=== PATIENT | male | born 1960 | race Caucasian/White ===

== ENCOUNTER 2019-05-11 17:55 | Emergency (ER) | payer OTHER, SELFPAY ==
[2019-05-11] VITALS (10 sets, daily range): BP systolic 96–120; BP diastolic 67–88; PULSE 60–82; RESP 13–20; TEMP 36.6; O2SAT 98–100; BMI 27.8
--- NOTE | 2019-05-11 18:19 | DI.RAD.S_ITS ---
PROCEDURE: XR CHEST 1V INDICATIONS: chest pain TECHNIQUE: One view of the chest was acquired. COMPARISON: [facility], , CHEST 2 VIEW, 09/03/2014, 14:11. FINDINGS: Surgical changes and devices: None. Lungs and pleura: Lungs are clear. No pleural effusions or pneumothorax. Mediastinum: Mediastinal contours appear normal. Heart size is normal. Bones and chest wall: No suspicious bony lesions. Overlying soft tissues appear unremarkable. IMPRESSION: No acute cardiopulmonary pathology. Dictated by: Osito Barbour M.D. on 05/11/2019 at 18:40 Approved by: Osito Barbour M.D. on 05/11/2019 at 18:40
--- NOTE | 2019-05-11 18:30 | ED_ITS ---
HPI - Dizziness General Chief Complaint: Dizziness Stated Complaint: weakness, headache, stomach pain Time Seen by Provider: 05/11/19 17:59 Source: patient Mode of arrival: ambulatory Limitations: no limitations History of Present Illness HPI Narrative: Patient is a 58-year-old male with history of diabetes presenting with overall body aches and lightheadedness. He says it is sore to start yesterday but progressively gotten worse today. Today he bent over stood up and felt extremely dizzy and lightheaded he did not pass out. He denies any heart palpitations or focal deficits. He says that his metformin was recently doubled last week he was previously taking 500 twice a day now is taking 1000 twice a day he thinks it might be related. Initially he thought his sugar was low he does not have a glucometer at home to check it so he drink pop it did not seem to help. He has significant decrease in appetite. He feels some abdominal cramping but no real specific pain. He had 1 episode of diarrhea today no nausea or vomiting. He does have some lower leg cramps as well. MD complaint: dizziness and lightheadedness Related Data Home Medications Medication Instructions Recorded Confirmed metformin [Glucophage] 500 mg PO BIDCC #0 03/28/17 04/01/19 magnesium oxide 400 mg PO Q DAY #0 05/14/17 04/01/19 Previous Rx's Medication Instructions Recorded hydrochlorothiazide 25 mg PO QDAY #90 tab 03/28/17 carvedilol [Coreg] 3.125 mg PO Q DAY #90 tab 12/16/17 Allergies Allergy/AdvReac Type Severity Reaction Status Date / Time tramadol Allergy Mild N/V Verified 05/11/19 18:08 Review of Systems Review of Systems ROS Unobtainable: All systems reviewed & are unremarkable except as noted in HPI and below Constitutional Reports body ache(s), Denies chills, Denies fever(s), Denies lethargy and Denies weakness Eyes Denies change in vision, Denies eye discharge, Denies irritation and Denies loss of vision ENT Ears, Nose, Mouth, and Throat: Denies change in voice, Denies neck pain and Denies sore throat Cardiovascular Denies chest pain, Denies syncope, Denies irregular heart rhythm, Reports lightheadedness, Denies palpitations, Denies dyspnea and Denies dyspnea on exertion Respiratory Denies cough, Denies dyspnea, Denies dyspnea on exertion and Denies wheezing Gastrointestinal Gastrointestinal: Denies abdominal pain, Denies change in bowel habits, Denies diarrhea, Denies nausea and Denies vomiting Genitourinary Denies hematuria, Denies flank pain, Denies urinary incontinence and Denies urinary urgency Musculoskeletal Denies neck pain Integumentary/Breasts Denies pruritus, Denies erythema, Denies rash and Denies wounds Neurologic Denies syncope, Denies loss of vision and Denies weakness Endocrine Denies palpitations Allergic/Immunologic Denies wheezing [facility] Medical History Diabetes (Acute) Surgical History History of tonsillectomy Status post appendectomy Family History (Updated 02/06/17 @ 00:00 by Conversion Provider) Mother Heart disease Hypertension Stroke Social History Smoking Status: Never smoker Family History Mother Heart disease Hypertension Stroke Social History Smoking Status: Never smoker Exam Initial Vital Signs Initial Vital Signs: Vital Signs Temperature 97.9 F 05/11/19 18:08 Pulse Rate 69 05/11/19 18:08 Respiratory Rate 20 05/11/19 18:08 Blood Pressure 119/74 05/11/19 18:08 Pulse Oximetry 100 05/11/19 18:08 GENERAL: Well-appearing, well-nourished and in no acute distress. HEENT: Head atraumatic,EOMI, pupils reactive, face symmetric, moist mucous membranes CARDIOVASCULAR: Regular rate and rhythm without murmurs, rubs or gallops. RESPIRATORY: Breath sounds equal bilaterally, no wheezes rales or rhonchi. ABDOMEN: Soft, nontender. Normoactive bowel sounds all 4 quadrants. No guarding or rebound. EXTREMITIES: Normal range of motion, no clubbing or edema. Neurovascularly intact NEUROLOGICAL: Alert and oriented x4.Normal gait and speech. Cranial nerves II through XII grossly intact. Content Checker strength equal bilaterally lower extremity strength equal. SKIN: Warm, dry, no laceration, no petechiae, no rashes or lesions. Course Orders Ordered: ED Orders 05/11/19 18:10 EKG-12 Lead Stat 05/11/19 18:19 XR chest 1V Stat 05/11/19 18:20 Complete Blood Count AUTO DIFF Stat Comprehensive Metabolic Panel Stat Lipase Stat Partial Thromboplastin Time Stat Prothrombin Time INR Stat Troponin & CK Cardiac Panel Stat 05/11/19 18:28 US abdomen limited Stat 05/11/19 21:12 CT head/brain wo con Stat 05/11/19 21:21 Basic Metabolic Panel Stat Lactate (Lactic Acid) Stat Discontinued Medications Carvedilol (Coreg) 6.25 mg PO NOW ONE Stop: 05/11/19 21:11 Last Admin: 05/11/19 21:14 Dose: Not Given Sodium Chloride (Normal Saline 0.9%) 1,000 mls @ 1,000 mls/hr IV BOLUS ONE Stop: 05/11/19 19:27 Last Infusion: 05/11/19 19:23 Dose: 0 mls/hr Admin: 05/11/19 18:35 Dose: 1,000 mls/hr Sodium Chloride (Normal Saline 0.9%) 1,000 mls @ 1,000 mls/hr IV BOLUS ONE Stop: 05/11/19 20:05 Last Infusion: 05/11/19 20:26 Dose: 0 mls/hr Admin: 05/11/19 19:40 Dose: 1,000 mls/hr Sodium Chloride (Normal Saline 0.9%) 1,000 mls @ 1,000 mls/hr IV BOLUS ONE Stop: 05/11/19 21:44 Last Infusion: 05/11/19 22:22 Dose: 0 mls/hr Infusion: 05/11/19 21:37 Dose: 1,000 mls/hr Infusion: 05/11/19 21:25 Dose: 0 mls/hr Admin: 05/11/19 20:55 Dose: 1,000 mls/hr Lisinopril (Zestril) 40 mg PO NOW ONE Stop: 05/11/19 21:11 Last Admin: 05/11/19 21:15 Dose: Not Given Lorazepam (Ativan) 2 mg PO NOW ONE Stop: 05/11/19 21:11 Last Admin: 05/11/19 21:15 Dose: Not Given Vital Signs - 8 hr 05/11/19 18:08 05/11/19 19:00 05/11/19 19:31 Temperature 97.9 F Pulse Rate 69 69 67 Pulse Rate [Orthostatic Lying] Pulse Rate [Orthostatic Sitting] Pulse Rate [Orthostatic Standing] Respiratory Rate 20 15 14 Blood Pressure 119/74 Blood Pressure [Left Arm] 103/67 115/78 Blood Pressure [Orthostatic Lying] Blood Pressure [Orthostatic Sitting] Blood Pressure [Orthostatic Standing] Pulse Oximetry 100 98 100 05/11/19 20:00 05/11/19 20:41 05/11/19 20:52 Temperature Pulse Rate 65 82 61 Pulse Rate [Orthostatic Lying] Pulse Rate [Orthostatic Sitting] Pulse Rate [Orthostatic Standing] Respiratory Rate 16 16 Blood Pressure Blood Pressure [Left Arm] 108/80 113/83 Blood Pressure [Orthostatic Lying] Blood Pressure [Orthostatic Sitting] Blood Pressure [Orthostatic Standing] Pulse Oximetry 100 100 100 05/11/19 20:54 05/11/19 21:00 05/11/19 22:00 Temperature Pulse Rate 68 62 Pulse Rate [Orthostatic Lying] 60 Pulse Rate [Orthostatic Sitting] 65 Pulse Rate [Orthostatic Standing] 70 Respiratory Rate 20 16 Blood Pressure Blood Pressure [Left Arm] 112/88 119/81 Blood Pressure [Orthostatic Lying] 113/83 Blood Pressure [Orthostatic Sitting] 118/84 Blood Pressure [Orthostatic Standing] 96/69 Pulse Oximetry 100 100 05/11/19 22:30 Temperature Pulse Rate 61 Pulse Rate [Orthostatic Lying] Pulse Rate [Orthostatic Sitting] Pulse Rate [Orthostatic Standing] Respiratory Rate 13 Blood Pressure Blood Pressure [Left Arm] 120/81 Blood Pressure [Orthostatic Lying] Blood Pressure [Orthostatic Sitting] Blood Pressure [Orthostatic Standing] Pulse Oximetry 98 MDM - Dizziness Lab Data Attestation: I reviewed the patient's lab results. Result diagrams: 05/11/19 18:20 05/11/19 21:21 Lab Results 05/11/19 05/11/19 05/11/19 Range/Units 18:20 18:20 18:20 WBC 6.4 (4.5-11.0) X10^3/uL RBC 4.15 L (4.5-5.9) X10^6/uL Hgb 13.9 (13.5-17.5) g/dL Hct 40.1 L (41-53) % MCV 96.6 (80-100) fL MCH 33.4 (26-34) PG MCHC 34.6 (30-36) % RDW 13.5 (11.6-14.8) % Plt Count 161 (150-400) X10^3/uL Neut % (Auto) 46.3 L (50-75) % Lymph % (Auto) 42.7 H (25-40) % Wheeler % (Auto) 9.3 (3-14) % Eos % (Auto) 1.1 L (2-4) % Baso % (Auto) 0.6 (0-2) % Neut # (Auto) 3000 (7440-1894) /uL Lymph # (Auto) 2700 (6889-9302) /uL Wheeler # (Auto) 600 (0-900) /uL Eos # (Auto) 100 (0-450) /uL Baso # (Auto) 0 (0-100) /uL PT 11.5 (10.1-12.7) SECONDS INR 1.0 (0.9-1.3) APTT 32 (26.4-36.2) SECONDS Sodium 131 L (137-145) mmol/L Potassium 4.5 (3.4-5.1) mmol/L Chloride 99 (98-107) mmol/L Carbon Dioxide 20 L (22-32) mmol/L BUN 55 H (9-20) mg/dL Creatinine 2.00 H (0.66-1.25) mg/dL Estimated GFR 34.3 L (>60) mL/min BUN/Creatinine Ratio 27.5 H (6-22) Glucose 182 H (80-110) mg/dL Lactate (0.7-2.1) mmol/L Calcium 9.6 (8.4-10.2) mg/dL Total Bilirubin 0.5 (0.2-1.3) mg/dL AST 65 H (17-59) IU/L ALT 119 H (21-72) IU/L Alkaline Phosphatase 53 (38-126) U/L Total Creatine Kinase 184 H (55-170) U/L CK-MB (CK-2) 2.27 (<2.37) ng/mL CK-MB (CK-2) Rel Index 1.2 L (1.5-5.0) % Troponin I < 0.012 (0.01-0.034) ng/mL Total Protein 7.2 (6.3-8.2) g/dL Albumin 4.2 (3.5-5.0) g/dL Globulin 3.0 (1.7-4.1) g/dL Albumin/Globulin Ratio 1.4 (1.0-2.8) Lipase 249 (23-300) U/L 05/11/19 05/11/19 Range/Units 21:21 21:21 WBC (4.5-11.0) X10^3/uL RBC (4.5-5.9) X10^6/uL Hgb (13.5-17.5) g/dL Hct (41-53) % MCV (80-100) fL MCH (26-34) PG MCHC (30-36) % RDW (11.6-14.8) % Plt Count (150-400) X10^3/uL Neut % (Auto) (50-75) % Lymph % (Auto) (25-40) % Wheeler % (Auto) (3-14) % Eos % (Auto) (2-4) % Baso % (Auto) (0-2) % Neut # (Auto) (3608-5657) /uL Lymph # (Auto) (9131-4023) /uL Wheeler # (Auto) (0-900) /uL Eos # (Auto) (0-450) /uL Baso # (Auto) (0-100) /uL PT (10.1-12.7) SECONDS INR (0.9-1.3) APTT (26.4-36.2) SECONDS Sodium 137 (137-145) mmol/L Potassium 4.2 (3.4-5.1) mmol/L Chloride 106 (98-107) mmol/L Carbon Dioxide 22 (22-32) mmol/L BUN 50 H (9-20) mg/dL Creatinine 1.70 H (0.66-1.25) mg/dL Estimated GFR 41.3 L (>60) mL/min BUN/Creatinine Ratio 29.4 H (6-22) Glucose 80 D (80-110) mg/dL Lactate 0.6 L (0.7-2.1) mmol/L Calcium 8.6 (8.4-10.2) mg/dL Total Bilirubin (0.2-1.3) mg/dL AST (17-59) IU/L ALT (21-72) IU/L Alkaline Phosphatase (38-126) U/L Total Creatine Kinase (55-170) U/L CK-MB (CK-2) (<2.37) ng/mL CK-MB (CK-2) Rel Index (1.5-5.0) % Troponin I (0.01-0.034) ng/mL Total Protein (6.3-8.2) g/dL Albumin (3.5-5.0) g/dL Globulin (1.7-4.1) g/dL Albumin/Globulin Ratio (1.0-2.8) Lipase (23-300) U/L Imaging Data Chest x-ray: Radiologist's impression: PROCEDURE: XR CHEST 1V INDICATIONS: chest pain TECHNIQUE: One view of the chest was acquired. COMPARISON: [facility], CHEST 2 VIEW, 09/03/2014, 14:11. FINDINGS: Surgical changes and devices: None. Lungs and pleura: Lungs are clear. No pleural effusions or pneumothorax. Mediastinum: Mediastinal contours appear normal. Heart size is normal. Bones and chest wall: No suspicious bony lesions. Overlying soft tissues appear unremarkable. IMPRESSION: No acute cardiopulmonary pathology. Dictated by: Osito Barbour M.D. on 05/11/2019 at 18:40 US - abdomen: Radiologist's impression: PROCEDURE: US ABDOMEN LIMITED INDICATIONS: RIGHT UPPER QUADRANT PAIN TECHNIQUE: Real-time scanning was performed of the abdominal and retroperitoneal organs, with image documentation. COMPARISON: None. FINDINGS: Liver: Liver is normal in size. Increased liver parenchyma echotexture is seen suggestive of hepatic steatosis. No discrete hepatic lesion is noted. Gallbladder: There is no gallstone. Sludge material is noted in the dependent portion of gallbladder lumen. No gallbladder wall thickening or pericholecystic fluid. No sonographic Gagnon's sign. Biliary ducts: Intrahepatic bile ducts are non-dilated. Extrahepatic bile duct caliber measures 3.5 mm. Normal is 6-7 mm or less in diameter, or 10 mm or less post-cholecystectomy. Pancreas: Visualized portions of the pancreas are sonographically normal. Miscellaneous: No free abdominal fluid. IMPRESSION: 1. Hepatic steatosis. No discrete hepatic lesion. 2. Sludge material within gallbladder lumen. No evidence of acute cholecystitis. 3. No biliary ductal dilatation. Dictated by: Osito Barbour M.D. on 05/11/2019 at 20:05 Approved by: Osito Barbour M.D. on 05/11/2019 at 20:07 CT scan - head: Radiologist's impression: PROCEDURE: CT HEAD/BRAIN WO CON INDICATIONS: headache lightheaded TECHNIQUE: Noncontrast 4.5 mm thick angled axial sections acquired from the foramen magnum to the vertex, with coronal and sagittal reformats. For radiation dose reduction, the following was used: automated exposure control, adjustment of mA and/or kV according to patient size. COMPARISON: None. FINDINGS: Image quality: Excellent. CSF spaces: Basal cisterns are patent. No extra-axial fluid collections. Ventricles are normal in size and shape. Brain: No midline shift. No intracranial masses or hemorrhage. Miramontes-white matter interface is normal. Skull and face: Calvarium and visualized facial bones are intact, without suspicious lesions. Sinuses: Visualized sinuses and mastoids are clear. IMPRESSION: No CT evidence of acute intracranial pathology. Dictated by: Osito Barbour M.D. on 05/11/2019 at 22:04 ECG Data Attestation: I personally reviewed and interpreted this ECG as follows: Prior ECG tracings: available for review Interpretation: Normal sinus rhythm rate 67 P are interval [address] changes no T-wave inversions similar to previous EKGs. [facility] Narrative Medical decision making narrative: 9:15 p.m.. Patient has had 2 L of IV fluid he feels a little bit better. Ambulation trial at the end he felt extremely lightheaded again. He also now is complaining that he has had headache off and on throughout the day he typically does not get headaches. Decision for head CT. Repeat blood work including lactic acid to rule out any complication from metformin. Patient is tolerating oral fluids he has had 2 L of IV fluids, now on his 3rd. He actually is on hydrochlorothiazide which may have contributed to some dehydration. Also body possibly reacting to metformin although it is bullock cars the dehydration. It is also unclear what his baseline creatinine is. His previously in 2017 0.9. Creatinine did improved today after IV fluids from 2.0- 1.7. After the 3rd L is he overall is feeling better. [facility] He feels comfortable going home all overall feeling less dizzy. Patient did have outpatient blood work done on 04/27/2019 however BUN creatinine and electrolytes were not done. At this time I discussed with patient and to return to his metformin previous dose of 500 twice a day and to stop his hydrochlorothiazide until further notice. I discussed all findings with the patient and spouse, Education has been performed regarding treatment plan, diagnosis, warning signs and symptoms and all concerns have been addressed. Verbally agree with and understood all of the above. Discharge Plan Departure Patient Disposition: Home Clinical Impression: Acute dehydration Discharge Date/Time: 05/11/19 22:44 Interventions: ED Discharge Assessment Last Done: 05/11/19 22:44 Instructions: Orthostatic Hypotension Activity Restrictions/Additional Instructions: *You have been diagnosed with dehydration *What to do: Your kidney function today was elevated. This may be due to hydrochlorothiazide and or increase in Metformin BUN today 50, creatinine 2.0 *Continue to take medications as directed Decrease metformin back to 500 mg twice daily Hold off hydrochlorothiazide for now until further instructions from her PCP *Follow up with your primary care provider in 2-3 days *Return to ER if you should have persistent dizziness lightheadedness, unilateral weakness, passing out, chest pain or any new, worsening or concerning symptoms Prescriptions: No Action metformin [Glucophage] 500 MG tablet 500 mg PO BIDCC Qty: 0 RF: 0 hydrochlorothiazide 25 MG tablet 25 mg PO QDAY Qty: 90 RF: 3 magnesium oxide 400 MG capsule 400 mg PO Q DAY Qty: 0 RF: 0 carvedilol [Coreg] 3.125 MG tablet 3.125 mg PO Q DAY Qty: 90 RF: 3 Referrals: Elan Gao ARNP [Primary Care Provider] -
[2019-05-11 18:33] LABS: Add Manual Diff / Slide Review NO; Basophils Absolute Auto 0 /uL (0-100); Basophils Percent Auto 0.6 % (0-2); Eosinophils Absolute Auto 100 /uL (0-450); Eosinophils Percent Auto 1.1 % (2-4); Hematocrit 40.1 % (41-53); Hemoglobin 13.9 g/dL (13.5-17.5); Lymphocytes Absolute Auto 2700 /uL (1100-4500); Lymphocytes Percent Auto 42.7 % (25-40); Mean Corpuscular HGB Conc 34.6 % (30-36); Mean Corpuscular Hemoglobin 33.4 PG (26-34); Mean Corpuscular Volume 96.6 fL (80-100); Monocytes Absolute Auto 600 /uL (0-900); Monocytes Percent Auto 9.3 % (3-14); Neutrophils Absolute Auto 3000 /uL (1500-7000); Neutrophils Percent Auto 46.3 % (50-75); Platelet Count 161 X10^3/uL (150-400); Red Blood Cell Count 4.15 X10^6/uL (4.5-5.9); Red Cell Distribution Width 13.5 % (11.6-14.8); White Blood Cell Count 6.4 X10^3/uL (4.5-11.0)
[2019-05-11] MEDS: SODIUM CHLORIDE 0.9% 1,000 ML 1000 ML IV ×3 (18:35→20:55)
[2019-05-11 18:38] LABS: Prothrombin Time 11.5 SECONDS (10.1-12.7)
[2019-05-11 18:40] LABS: PTT Partial Thromboplastin Tim 32 SECONDS (26.4-36.2)
[2019-05-11 18:42] LABS: Alanine Aminotransferase 119 IU/L (21-72); Albumin 4.2 g/dL (3.5-5.0); Albumin Globulin Ratio 1.4 (1.0-2.8); Alkaline Phosphatase 53 U/L (38-126); Aspartate Aminotransferase 65 IU/L (17-59); BUN Creatinine Ratio 27.5 (6-22); Bilirubin Total 0.5 mg/dL (0.2-1.3); Blood Urea Nitrogen 55 mg/dL (9-20); Calcium 9.6 mg/dL (8.4-10.2); Carbon Dioxide 20 mmol/L (22-32); Chloride 99 mmol/L (98-107); Creatine Kinase 184 U/L (55-170); Estimated Glomerular Filt Rate 34.3 mL/min (>60); Glucose 182 mg/dL (80-110); HEMOLYSIS < 15 (0-50); Lipase 249 U/L (23-300); Potassium 4.5 mmol/L (3.4-5.1); Sodium 131 mmol/L (137-145); Total Protein 7.2 g/dL (6.3-8.2)
[2019-05-11 18:53] LABS: Troponin I < 0.012 ng/mL (0.01-0.034)
[2019-05-11 18:57] LABS: CKMB % Relative Index 1.2 % (1.5-5.0); Creatine Kinase MB 2.27 ng/mL (<2.37)
--- NOTE | 2019-05-11 21:12 | DI.CT.S_ITS ---
PROCEDURE: CT HEAD/BRAIN WO CON INDICATIONS: headache lightheaded TECHNIQUE: Noncontrast 4.5 mm thick angled axial sections acquired from the foramen magnum to the vertex, with coronal and sagittal reformats. For radiation dose reduction, the following was used: automated exposure control, adjustment of mA and/or kV according to patient size. COMPARISON: None. FINDINGS: Image quality: Excellent. CSF spaces: Basal cisterns are patent. No extra-axial fluid collections. Ventricles are normal in size and shape. Brain: No midline shift. No intracranial masses or hemorrhage. Miramontes-white matter interface is normal. Skull and face: Calvarium and visualized facial bones are intact, without suspicious lesions. Sinuses: Visualized sinuses and mastoids are clear. IMPRESSION: No CT evidence of acute intracranial pathology. Dictated by: Osito Barbour M.D. on 05/11/2019 at 22:04 Approved by: Osito Barbour M.D. on 05/11/2019 at 22:04
[2019-05-11 21:36] LABS: Lactate (Lactic Acid) 0.6 mmol/L (0.7-2.1)
[2019-05-11 21:37] LABS: BUN Creatinine Ratio 29.4 (6-22); Blood Urea Nitrogen 50 mg/dL (9-20); Calcium 8.6 mg/dL (8.4-10.2); Carbon Dioxide 22 mmol/L (22-32); Chloride 106 mmol/L (98-107); Estimated Glomerular Filt Rate 41.3 mL/min (>60); Glucose 80 mg/dL (80-110); HEMOLYSIS < 15 (0-50); Potassium 4.2 mmol/L (3.4-5.1); Sodium 137 mmol/L (137-145)
== END 2019-05-11 22:44 | disposition home or self-care (01) ==
PROVIDERS: Emergency Provider Emergency Medicine; PCP Nurse Practitioner Family
DX: E86.0 Dehydration (principal); R42 Dizziness and giddiness; R10.9 Unspecified abdominal pain; R51 Headache
CPT/HCPCS: 36415; 36591; 70450; 71045; 76705; 80048; 80053; 82550; 82553; 83605; 83690; 84484; 85025; 85610; 85730; 93005; 96360; 96361; 99285

== ENCOUNTER → 2019-09-27 10:31 | Outpatient (CLI) | payer OTHER, SELFPAY ==
--- NOTE | 2019-09-27 | DI.MRI.S_ITS ---
PROCEDURE: MR ANKLE LT WO CON INDICATIONS: Foot drop, left foot TECHNIQUE: Noncontrast sagittal T1 spin echo and T2 fast spin echo with fat saturation, axial proton density fast spin echo and T2 fast spin echo with fat saturation, coronal T1 spin echo and T2 fast spin echo with fat saturation through the ankle/hindfoot. COMPARISON: None. FINDINGS: Image quality: Excellent. Bones and joints: No bone marrow contusions or fractures. There is focal subchondral edema along the lateral talar dome with a suspected overlying osteochondral lesion. No displaced or unstable fragment visualized. There is mild indistinct edema within the tail is also noted adjacent to the sinus tarsi compatible with small intraosseous ganglion cyst formation. No hindfoot coalitions. There is mild cartilage thinning along the tibiotalar joint. There is a minimal tibiotalar joint effusion. Medial structures: The posterior tibialis, flexor digitorum longus, and flexor hallucis longus tendons are intact. The posterior tibial neurovascular bundle appears normal within the tarsal tunnel, without extrinsic mass effect. There is attenuation of the deltoid ligament predominantly involving the superficial layer consistent with sequelae of a mild to moderate sprain. The spring ligament components appear grossly intact. Lateral structures: The anterior talofibular, calcaneofibular, and posterior talofibular ligaments appear intact. More superiorly, the anterior and posterior tibiofibular ligaments also appear intact, as is the intermalleolar ligament. The tibiofibular syndesmosis is normal in width at 2 mm or less. The peroneus longus and brevis tendons appear intact with a small amount of tenosynovial fluid. There is flattening of the peroneus brevis tendon inferior to the lateral malleolus with minimal longitudinal partial tearing. Adjacent bony peroneal tubercle and retrotrochlear prominence are normal in size. The sinus tarsi demonstrates preserved fatty signal with mild edema which reflect sequela of mild ligamentous sprains. The calcaneonavicular and calcaneocuboid components of the bifurcate ligament appear intact. The dorsal calcaneocuboid ligament appears intact. Anterior structures: The tibialis anterior, extensor hallucis longus, and extensor digitorum longus tendons appear intact. The dorsal talonavicular ligament appears intact. Posterior and plantar structures: Achilles tendon demonstrates mild tendinopathy distally but appears intact. There is minimal peritendinous edema distally and trace fluid in the retrocalcaneal bursa. There is thickening of the central cord of the plantar fascia proximally without associated edema suggesting sequelae of prior plantar fasciitis. No abductor digiti quinti muscle atrophy to suggest Dang neuropathy. IMPRESSION: 1. Mild degeneration along the tibiotalar joint with a small focus of subchondral edema in the lateral talar dome and suggestion of an overlying osteochondral lesion. No displaced or unstable fragment. 2. Sequelae of a mild to moderate sprain of the deltoid ligament. 3. Mild tenosynovitis along the peroneal tendons with flattening and minimal functional partial tearing of the peroneus brevis. 4. Thickening of the central cord of the plantar fascia proximally without associated edema suggesting sequelae of prior plantar fasciitis. Dictated by: Jatin Miller M.D. on 09/28/2019 at 8:38 Approved by: Jatin Miller M.D. on 09/28/2019 at 8:46
== END ==
PROVIDERS: PCP Nurse Practitioner Family; Visit Provider Orthopaedic Surgery Foot and Ankle Surgery
DX: M21.372 Foot drop, left foot (principal); S93.422S Sprain of deltoid ligament of left ankle, sequela; M65.872 Other synovitis and tenosynovitis, left ankle and foot
CPT/HCPCS: 73721

== ENCOUNTER → 2019-10-08 07:26 | Outpatient (CLI) | payer OTHER, SELFPAY ==
[2019-10-08 07:54] LABS: Add Manual Diff / Slide Review NO; Basophils Absolute Auto 0 /uL (0-100); Basophils Percent Auto 0.4 % (0-2); Eosinophils Absolute Auto 100 /uL (0-450); Hematocrit 39.9 % (41-53); Hemoglobin 13.7 g/dL (13.5-17.5); Lymphocytes Absolute Auto 2000 /uL (1100-4500); Lymphocytes Percent Auto 39.9 % (25-40); Mean Corpuscular HGB Conc 34.4 % (30-36); Mean Corpuscular Hemoglobin 33.4 PG (26-34); Monocytes Absolute Auto 600 /uL (0-900); Monocytes Percent Auto 11.4 % (3-14); Neutrophils Absolute Auto 2300 /uL (1500-7000); Neutrophils Percent Auto 46.3 % (50-75); Platelet Count 162 X10^3/uL (150-400); Red Blood Cell Count 4.12 X10^6/uL (4.5-5.9)
== END ==
PROVIDERS: PCP Nurse Practitioner Family; Visit Provider Orthopaedic Surgery Foot and Ankle Surgery
DX: Z01.812 Encounter for preprocedural laboratory examination (principal)
CPT/HCPCS: 36415; 85025; 93005; 93010